=== PATIENT | male | born 1980 | race Caucasian/White ===

== ENCOUNTER 2016-04-28 16:54 | Emergency (ER) | payer OTHER ==
[2016-04-28 17:11] VITALS: RESP 18
[2016-04-28] MEDS ORDERED: KETOROLAC 30 MG/ML 1 ML VIAL IVP STA (18:26)
--- NOTE | 2016-04-28 18:28 | ED ---
General Adult HPI - General Chief complaint: Chest Pain Stated complaint: Chest Pain Time Seen by Provider: 04/28/16 18:16 Source: patient, RN notes reviewed Mode of arrival: ambulatory - History of Present Illness Initial comments: Patient is a 35-year-old male who presents emergency room today with a chief complaint of left-sided chest wall pain over the last 2-3 days. Patient does admit that it's a "sharp" type pain. He doesn't that it started to get worse earlier today when he was working out. He does admit that it's worse with deep breaths certain movements of the left arm and on palpation. Patient denies any specific injury or trauma. He states never had some symptoms in the past. States he was working there is a family history of heart disease. States his mother did give him a sublingual nitro that made no difference with his symptoms earlier today. Patient denies any other complaints or associated symptoms. Patient denies any recent fever, chills, shortness of breath, back pain, abdominal pain, nausea or vomiting, numbness or tingling, dysuria or hematuria, constipation or diarrhea, headaches or visual changes, or any other complaints. - Related Data Home Medications Medication Instructions Recorded Confirmed hydrOXYzine PAMOATE 50 mg PO TID 04/28/16 04/28/16 traZODone HCL 200 mg PO HS 04/28/16 04/28/16 Previous Rx's Medication Instructions Recorded Ibuprofen [Motrin] 600 mg PO Q6HR PRN #30 day 04/28/16 Allergies Allergy/AdvReac Type Severity Reaction Status Date / Time No Known Allergies Allergy Verified 04/28/16 17:11 Review of Systems ROS Statement: Those systems with pertinent positive or pertinent negative responses have been documented in the HPI. ROS Other: All systems not noted in ROS Statement are negative. Past Medical History Past Medical History: No Reported History History of Any Multi-Drug Resistant Organisms: None Reported Additional Past Surgical History / Comment(s): vasectomy 2011 Past Anesthesia/Blood Transfusion Reactions: No Reported Reaction Additional Past Anesthesia/Blood Transfusion Reaction / Comment(s): No previous blood transfusions. Past Psychological History: Bipolar, Depression, PTSD Additional Psychological History / Comment(s): Patient denies being open with any outpatient mental health treatment program prior to admission. 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 General Exam - General Exam Comments Initial Comments: General: The patient is awake and alert, in no distress, and does not appear acutely ill. Eye: Pupils are equal, round and reactive to light, extra-ocular movements are intact. No nystagmus. There is normal conjunctiva bilaterally. No signs of icterus. Ears, nose, mouth and throat: There are moist mucous membranes and no oral lesions. Neck: The neck is supple, there is no tenderness or JVD. Cardiovascular: There is a regular rate and rhythm. No murmur, rub or gallop is appreciated. Pain reproduced on palpation to the anterior left-sided chest wall. Respiratory: Lungs are clear to auscultation, respirations are non-labored, breath sounds are equal. No wheezes, stridor, rales, or rhonchi. Gastrointestinal: Soft, non-distended, non-tender abdomen without masses or organomegaly noted. There is no rebound or guarding present. No CVA tenderness. Bowel sounds are unremarkable. Musculoskeletal: Normal ROM, no tenderness. Strength 5/5. Sensation intact. Pulses equal bilaterally 2+. Neurological: A&O x 3. CN II-XII intact, There are no obvious motor or sensory deficits. Coordination appears grossly intact. Speech is normal. Skin: Skin is warm and dry and no rashes or lesions are noted. Psychiatric: Cooperative, appropriate mood & affect, normal judgment. Course Vital Signs 04/28/16 04/28/16 17:08 18:47 Temperature 98.5 F Pulse Rate 97 90 Respiratory 18 18 Rate Blood Pressure 129/77 117/58 O2 Sat by Pulse 98 98 Oximetry EKG Findings - EKG Comments: EKG Findings:: EKG performed at 1720: A 12-lead EKG was performed and interpreted by me as showing the following: Rate is 93, and rhythm is normal sinus. There are normal QRS complexes and normal R-wave progression. ST segments have no elevation or depression, and MA segments appear normal. Medical Decision Making - Medical Decision Making Patient reexamined at this time shows no signs of distress. He was given Toradol here in the emergency room she does admit that has helped with his pain. States is feeling better. Patient's chest x-ray reviewed and are unremarkable. Patient's labs reviewed. Negative troponin. CK elevated at 711. Patient does admit to working out. He states the pain was worse after working out this morning. Pain is reproducible to the anterior chest wall palpation. Case discussed in detail with attending physician Dr. Padilla. Patient is advised to follow up his family doctor this coming week over the next 3-5 days. Advised to use anti-inflammatories symptoms. Advised return if any symptoms increase worsen or for any other concerns. - Lab Data Result diagrams: 04/28/16 18:20 04/28/16 18:20 Lab Results 04/28/16 04/28/16 04/28/16 Range/Units 18:20 18:20 18:20 WBC 11.3 H (3.8-10.6) k/uL RBC 5.75 (4.30-5.90) m/uL Hgb 16.2 (13.0-17.5) gm/dL Hct 49.2 (39.0-53.0) % MCV 85.6 (80.0-100.0) fL MCH 28.1 (25.0-35.0) pg MCHC 32.9 (31.0-37.0) g/dL RDW 12.2 (11.5-15.5) % Plt Count 330 (150-450) k/uL Neutrophils % 68 % Lymphocytes % 21 % Monocytes % 6 % Eosinophils % 2 % Basophils % 1 % Neutrophils # 7.7 (1.3-7.7) k/uL Lymphocytes # 2.4 (1.0-4.8) k/uL Monocytes # 0.7 (0-1.0) k/uL Eosinophils # 0.3 (0-0.7) k/uL Basophils # 0.1 (0-0.2) k/uL PT (9.0-12.0) sec INR (<1.1) APTT (22.0-30.0) sec Sodium 145 (137-145) mmol/L Potassium 4.3 (3.5-5.1) mmol/L Chloride 104 (98-107) mmol/L Carbon Dioxide 29 (22-30) mmol/L Anion Gap 12 mmol/L BUN 11 (9-20) mg/dL Creatinine 1.00 (0.66-1.25) mg/dL Est GFR (MDRD) Af Amer >60 (>60 ml/min/1.73 sqM) Est GFR (MDRD) Non-Af >60 (>60 ml/min/1.73 sqM) Glucose 95 (74-99) mg/dL Calcium 9.9 (8.4-10.2) mg/dL Magnesium 2.1 (1.6-2.3) mg/dL Total Bilirubin 0.6 (0.2-1.3) mg/dL AST 40 (17-59) U/L ALT 38 (21-72) U/L Alkaline Phosphatase 103 (38-126) U/L Total Creatine Kinase 711 H (55-170) U/L CK-MB (CK-2) 2.0 (0.0-2.4) ng/mL CK-MB (CK-2) Rel Index 0.3 Troponin I <0.012 (0.000-0.034) ng/mL Total Protein 7.9 (6.3-8.2) g/dL Albumin 4.8 (3.5-5.0) g/dL 04/28/16 Range/Units 18:20 WBC (3.8-10.6) k/uL RBC (4.30-5.90) m/uL Hgb (13.0-17.5) gm/dL Hct (39.0-53.0) % MCV (80.0-100.0) fL MCH (25.0-35.0) pg MCHC (31.0-37.0) g/dL RDW (11.5-15.5) % Plt Count (150-450) k/uL Neutrophils % % Lymphocytes % % Monocytes % % Eosinophils % % Basophils % % Neutrophils # (1.3-7.7) k/uL Lymphocytes # (1.0-4.8) k/uL Monocytes # (0-1.0) k/uL Eosinophils # (0-0.7) k/uL Basophils # (0-0.2) k/uL PT 10.6 (9.0-12.0) sec INR 1.0 (<1.1) APTT 24.5 (22.0-30.0) sec Sodium (137-145) mmol/L Potassium (3.5-5.1) mmol/L Chloride (98-107) mmol/L Carbon Dioxide (22-30) mmol/L Anion Gap mmol/L BUN (9-20) mg/dL Creatinine (0.66-1.25) mg/dL Est GFR (MDRD) Af Amer (>60 ml/min/1.73 sqM) Est GFR (MDRD) Non-Af (>60 ml/min/1.73 sqM) Glucose (74-99) mg/dL Calcium (8.4-10.2) mg/dL Magnesium (1.6-2.3) mg/dL Total Bilirubin (0.2-1.3) mg/dL AST (17-59) U/L ALT (21-72) U/L Alkaline Phosphatase (38-126) U/L Total Creatine Kinase (55-170) U/L CK-MB (CK-2) (0.0-2.4) ng/mL CK-MB (CK-2) Rel Index Troponin I (0.000-0.034) ng/mL Total Protein (6.3-8.2) g/dL Albumin (3.5-5.0) g/dL Disposition Clinical Impression: Muscle strain of chest wall Disposition: HOME SELF-CARE Condition: Good Instructions: Muscle Strain (ED) Additional Instructions: Please use anti-inflammatory as prescribed. Please follow-up the family doctor over the next 3-5 days. Please return to emergency room if any symptoms increase or worsen or for any other concerns as discussed. Prescriptions: Ibuprofen [Motrin] 600 mg PO Q6HR PRN #30 day PRN Reason: Pain Time of Disposition: 19:34
[2016-04-28 18:33] LABS: Basophils # (A) 0.1 k/uL (0-0.2); Basophils % (A) 1 %; Eosinophils # (A) 0.3 k/uL (0-0.7); Eosinophils % (A) 2 %; HCT 49.2 % (39.0-53.0); HDW 2.34; HGB 16.2 gm/dL (13.0-17.5); Luc # (Auto) 0.21; Luc % (Auto) 2; Lymphocytes # (A) 2.4 k/uL (1.0-4.8); Lymphocytes % (A) 21 %; MCH 28.1 pg (25.0-35.0); MCHC 32.9 g/dL (31.0-37.0); MCV 85.6 fL (80.0-100.0); Mean Platelet Volume 7.1; Monocytes # (A) 0.7 k/uL (0-1.0); Monocytes % (A) 6 %; Neutrophils # (A) 7.7 k/uL (1.3-7.7); Neutrophils % (A) 68 %; RBC 5.75 m/uL (4.30-5.90); RDW 12.2 % (11.5-15.5); WBC 11.3 k/uL (3.8-10.6); WBC (Perox) 11.23
[2016-04-28 18:42] LABS: Partial Thromboplastin Time 24.5 sec (22.0-30.0); Prothrombin Time 10.6 sec (9.0-12.0)
--- NOTE | 2016-04-28 18:43 | XR ---
EXAMINATION TYPE: XR chest 2V DATE OF EXAM: 04/28/2016 6:39 PM COMPARISON: NONE HISTORY: Palpitations and left-sided chest pain TECHNIQUE: Frontal and lateral views of the chest are obtained. FINDINGS: Heart and mediastinum are normal. Lungs are clear. Diaphragm is normal. Bony thorax and so ft tissues appear normal. There are chest leads. IMPRESSION: Normal chest
[2016-04-28 18:51] LABS: ALT 38 U/L (21-72); AST 40 U/L (17-59); Alkaline Phosphatase 103 U/L (38-126); Anion Gap 12 mmol/L; Blood Urea Nitrogen 11 mg/dL (9-20); Calcium 9.9 mg/dL (8.4-10.2); Carbon Dioxide 29 mmol/L (22-30); Chloride 104 mmol/L (98-107); Glucose 95 mg/dL (74-99); Magnesium 2.1 mg/dL (1.6-2.3); Non-African American GFR(MDRD) >60 (>60 ml/min/1.73 sqM); Potassium 4.3 mmol/L (3.5-5.1); Sodium 145 mmol/L (137-145); Total Bilirubin 0.6 mg/dL (0.2-1.3); Total Protein 7.9 g/dL (6.3-8.2)
[2016-04-28 18:53] LABS: Creatine Kinase 711 U/L (55-170)
[2016-04-28 19:07] LABS: Troponin I <0.012 ng/mL (0.000-0.034)
[2016-04-28 19:47] VITALS: BP 124/73; PULSE 78; TEMP 97
== END 2016-04-28 19:47 | disposition home or self-care (01) ==
LOC: EC 16:54
DX: S29.011A Strain of muscle and tendon of front wall of thorax, initial encounter (principal); X58.XXXA Exposure to other specified factors, initial encounter; F17.200 Nicotine dependence, unspecified, uncomplicated
CPT/HCPCS: 99285 ×2; 96374 ×2; 36415; 93005; 80053; 82550; 82553; 83735; 84484; 85025; 85610; 85730; 71020; J1885

== ENCOUNTER 2016-05-24 09:02 | Emergency (ER) | payer OTHER ==
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
[2016-05-24 10:42] VITALS: BP 145/72; PULSE 78; RESP 16; TEMP 98.7
== END 2016-05-24 10:42 | disposition home or self-care (01) ==
LOC: EC 09:02
DX: S16.1XXA Strain of muscle, fascia and tendon at neck level, initial encounter (principal); V47.6XXA Car passenger injured in collision with fixed or stationary object in traffic accident, initial encounter; Z79.899 Other long term (current) drug therapy; F32.9 Major depressive disorder, single episode, unspecified; F17.200 Nicotine dependence, unspecified, uncomplicated
CPT/HCPCS: 72125; 99283

== ENCOUNTER 2016-08-30 12:04 | Emergency (ER) | payer OTHER ==
--- NOTE | 2016-08-30 13:08 | ED ---
Upper Extremity HPI - General Chief Complaint: Extremity Injury, Upper Stated Complaint: Hand Pain/Numbness Time Seen by Provider: 08/30/16 12:12 Source: patient Mode of arrival: ambulatory Limitations: no limitations - History of Present Illness Initial Comments: This patient is a 35-year-old man who presents to be evaluated for aching pains to his bilateral hands. The patient states is coming on over a little over 48 hours. Patient states that he has an aching to both hands, but there are no symptoms higher up in the arms nor in the neck. The pain as an aching, constant , moderate intensity. 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 He has not noted any relieving factors. Again came on but over 48 hours ago when he thought it was related to the way he had slept. Patient denies any systemic symptoms, no fevers or chills, headache, chest pain, dyspnea or diaphoresis. He has not had trauma to the neck or arms. MD Complaint: Injury to:: left, right, hand Onset/Timin -: days(s) Other Injuries: none Handedness: right Place: home Improves With: none Worsens With: movement of extremity - Related Data Home Medications Medication Instructions Recorded Confirmed hydrOXYzine PAMOATE 50 mg PO TID 04/28/16 08/30/16 traZODone HCL 200 mg PO HS 04/28/16 08/30/16 Previous Rx's Medication Instructions Recorded Ibuprofen [Motrin] 800 mg PO Q8HR PRN #20 tab 08/30/16 predniSONE 20 mg PO BID #8 tab 08/30/16 Allergies Allergy/AdvReac Type Severity Reaction Status Date / Time No Known Allergies Allergy Verified 08/30/16 12:20 Review of Systems ROS Statement: Those systems with pertinent positive or pertinent negative responses have been documented in the HPI. ROS Other: All systems not noted in ROS Statement are negative. Constitutional: Denies: fever, chills, weakness Respiratory: Denies: cough, dyspnea Cardiovascular: Denies: chest pain, palpitations, edema, syncope Gastrointestinal: Denies: abdominal pain, vomiting Musculoskeletal: Reports: as per HPI. Denies: back pain Skin: Denies: rash Neurological: Denies: headache, weakness, numbness, paresthesias Past Medical History Past Medical History: No Reported History History of Any Multi-Drug Resistant Organisms: None Reported Additional Past Surgical History / Comment(s): vasectomy 2011 Past Anesthesia/Blood Transfusion Reactions: No Reported Reaction Additional Past Anesthesia/Blood Transfusion Reaction / Comment(s): No previous blood transfusions. Past Psychological History: Bipolar, Depression, PTSD Additional Psychological History / Comment(s): Patient denies being open with any outpatient mental health treatment program prior to admission. 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 General Exam Limitations: no limitations General appearance: alert, anxious Head exam: Present: atraumatic, normocephalic Neck exam: Present: normal inspection, full ROM. Absent: tenderness, meningismus Respiratory exam: Present: normal lung sounds bilaterally. Absent: respiratory distress, wheezes, rales, rhonchi, stridor Cardiovascular Exam: Present: regular rate, normal rhythm, normal heart sounds. Absent: systolic murmur, diastolic murmur, rubs, gallop Extremities exam: Present: normal inspection, full ROM, normal capillary refill. Absent: tenderness Neurological exam: Present: alert. Absent: motor sensory deficit Skin exam: Present: warm, dry, intact, normal color. Absent: rash Course Vital Signs 08/30/16 08/30/16 12:07 14:26 Temperature 96.8 F L 97.6 F Pulse Rate 70 74 Respiratory 18 20 Rate Blood Pressure 129/82 114/74 O2 Sat by Pulse 98 98 Oximetry Medical Decision Making - Lab Data Result diagrams: 08/30/16 12:55 08/30/16 12:55 Lab Results 08/30/16 08/30/16 Range/Units 12:55 12:55 WBC 7.1 (3.8-10.6) k/uL RBC 5.66 (4.30-5.90) m/uL Hgb 16.5 (13.0-17.5) gm/dL Hct 49.7 (39.0-53.0) % MCV 87.8 (80.0-100.0) fL MCH 29.2 (25.0-35.0) pg MCHC 33.2 (31.0-37.0) g/dL RDW 13.2 (11.5-15.5) % Plt Count 277 (150-450) k/uL Neutrophils % 46 % Lymphocytes % 38 % Monocytes % 5 % Eosinophils % 6 % Basophils % 2 % Neutrophils # 3.3 (1.3-7.7) k/uL Lymphocytes # 2.7 (1.0-4.8) k/uL Monocytes # 0.3 (0-1.0) k/uL Eosinophils # 0.5 (0-0.7) k/uL Basophils # 0.1 (0-0.2) k/uL ESR 1 (0-15) mm/hr Sodium 140 (137-145) mmol/L Potassium 3.8 (3.5-5.1) mmol/L Chloride 107 (98-107) mmol/L Carbon Dioxide 25 (22-30) mmol/L Anion Gap 8 mmol/L BUN 14 (9-20) mg/dL Creatinine 0.80 (0.66-1.25) mg/dL Est GFR (MDRD) Af Amer >60 (>60 ml/min/1.73 sqM) Est GFR (MDRD) Non-Af >60 (>60 ml/min/1.73 sqM) Glucose 112 H (74-99) mg/dL Calcium 9.1 (8.4-10.2) mg/dL Disposition Clinical Impression: Carpal tunnel syndrome on both sides Disposition: HOME SELF-CARE Condition: Fair Instructions: Paresthesia (ED) Prescriptions: Ibuprofen [Motrin] 800 mg PO Q8HR PRN #20 tab PRN Reason: Pain predniSONE 20 mg PO BID #8 tab Referrals: Ganesh Avila MD [Primary Care Provider] - 1-2 days
[2016-08-30 13:16] LABS: Basophils # (A) 0.1 k/uL (0-0.2); Basophils % (A) 2 %; CH 29.1; CHCM 33.2; Eosinophils # (A) 0.5 k/uL (0-0.7); Eosinophils % (A) 6 %; HCT 49.7 % (39.0-53.0); HDW 2.22; HGB 16.5 gm/dL (13.0-17.5); Luc # (Auto) 0.22; Luc % (Auto) 3; Lymphocytes # (A) 2.7 k/uL (1.0-4.8); Lymphocytes % (A) 38 %; MCH 29.2 pg (25.0-35.0); MCHC 33.2 g/dL (31.0-37.0); MCV 87.8 fL (80.0-100.0); Mean Platelet Volume 6.6; Monocytes # (A) 0.3 k/uL (0-1.0); Monocytes % (A) 5 %; Neutrophils # (A) 3.3 k/uL (1.3-7.7); Neutrophils % (A) 46 %; RBC 5.66 m/uL (4.30-5.90); RDW 13.2 % (11.5-15.5); WBC 7.1 k/uL (3.8-10.6); WBC (Perox) 6.74
[2016-08-30 13:22] LABS: Anion Gap 8 mmol/L; Blood Urea Nitrogen 14 mg/dL (9-20); Calcium 9.1 mg/dL (8.4-10.2); Carbon Dioxide 25 mmol/L (22-30); Chloride 107 mmol/L (98-107); Glucose 112 mg/dL (74-99); Non-African American GFR(MDRD) >60 (>60 ml/min/1.73 sqM); Potassium 3.8 mmol/L (3.5-5.1); Sodium 140 mmol/L (137-145)
[2016-08-30] MEDS ORDERED: IBUPROFEN 400 MG TAB PO STA (13:32)
[2016-08-30 14:04] LABS: Erythrocyte Sedimentation Rate 1 mm/hr (0-15)
[2016-08-30 14:27] VITALS: BP 114/74; PULSE 74; RESP 20; TEMP 97.6
== END 2016-08-30 14:57 | disposition home or self-care (01) ==
LOC: EC 12:04
DX: G56.03 Carpal tunnel syndrome, bilateral upper limbs (principal); F31.9 Bipolar disorder, unspecified; F43.10 Post-traumatic stress disorder, unspecified; F17.200 Nicotine dependence, unspecified, uncomplicated; Z79.899 Other long term (current) drug therapy
CPT/HCPCS: 36415; 80048; 85025; 85652; 99283

== ENCOUNTER 2020-01-07 03:40 | Emergency (ER) | payer OTHER ==
[2020-01-07 03:53] VITALS: BP 112/73; PULSE 115; RESP 18; TEMP 98
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
--- NOTE | 2020-01-07 04:08 | XR ---
EXAMINATION TYPE: XR shoulder complete RT DATE OF EXAM: 01/07/2020 COMPARISON: NONE HISTORY: Fall. Pain. TECHNIQUE: 3 views FINDINGS: I see no fracture nor dislocation. There is some malalignment of the AC joint. There is 7 m m offset. There are no pathologic calcifications. IMPRESSION: Malalignment of the AC joint consistent with ligamentous tear. No fracture seen. This yoli ears new compared to old chest x-ray 04/28/2016.
[2020-01-07] MEDS ORDERED: KETOROLAC 15 MG/ML 1 ML VIAL IM STA (04:15)
[2020-01-07] MEDS ORDERED: ORPHENADRINE 30 MG/ML 2 ML VIAL IM STA (04:15)
== END 2020-01-07 04:25 | disposition home or self-care (01) ==
LOC: EC 03:40
DX: S43.101A Unspecified dislocation of right acromioclavicular joint, initial encounter (principal); F17.200 Nicotine dependence, unspecified, uncomplicated; V00.131A Fall from skateboard, initial encounter; Y93.89 Activity, other specified; Y92.009 Unspecified place in unspecified non-institutional (private) residence as the place of occurrence of the external cause
CPT/HCPCS: 73030; 99283; 96372 ×2; J2360; J1885